=== PATIENT | male | born 1950 | race Caucasian/White ===

== ENCOUNTER 2021-12-18 08:38 | Outpatient (CLI) | payer MEDICARE | END 2021-12-18 08:39 | disposition home or self-care (01) | LOC: CSHCT 08:38 | PROVIDERS: ATTEND Physician Assistant Medical | DX: R10.13 Epigastric pain (principal); R10.10 Upper abdominal pain, unspecified; N20.0 Calculus of kidney; I31.8 Other specified diseases of pericardium; N28.1 Cyst of kidney, acquired | CPT/HCPCS: 74160 ==

== ENCOUNTER 2022-02-03 07:43 | Outpatient (CLI) | payer MEDICARE | END 2022-02-03 07:44 | disposition home or self-care (01) | LOC: CSHULT 07:43 | PROVIDERS: ATTEND Physician Assistant Medical | DX: R10.10 Upper abdominal pain, unspecified (principal); K21.00 Gastro-esophageal reflux disease with esophagitis, without bleeding | CPT/HCPCS: 76705 ==

== ENCOUNTER 2024-05-03 10:21 | Outpatient (CLI) | payer MEDICARE | END 2024-05-03 10:22 | disposition home or self-care (01) | LOC: CSHCP 10:21 | PROVIDERS: ATTEND Internal Medicine Critical Care Medicine | DX: R05.3 Chronic cough (principal); J44.9 Chronic obstructive pulmonary disease, unspecified | CPT/HCPCS: 94060; 94726; 94729; 94760 ==